=== PATIENT | female | born 1960 | race Caucasian/White ===

== ENCOUNTER 2018-01-10 08:23 | Emergency (ER) | payer SELFPAY ==
[~2018-01-10] VITALS: Ht 160 cm; Wt 60.0 kg
[2018-01-10 09:11] LABS: HEMATOCRIT 45.3 % (37.0-47.0); HEMOGLOBIN 15.6 g/dl (12.0-16.0); IMMATURE GRANULOCYTES 1.1 % (0.0-1.0); MEAN CELL VOLUME 92.1 fL CALC (80.0-100.0); MEAN CORPUSCULAR HGB 31.7 pG CALC (26.0-32.0); MEAN CORPUSCULAR HGB CONC 34.4 g/L CALC (32.0-36.0); NEUT# 2.62 thou/uL (2.00-7.15); RED BLOOD COUNT 4.92 mill/uL (4.20-5.60)
[2018-01-10 09:20] LABS: ALBUMIN 3.6 g/dL (3.2-5.0); ALKALINE PHOSPHATASE 82 u/l (38-126); ANION GAP 11 (6-22 (CALC)); BILIRUBIN, TOTAL 0.5 mg/dL (0.0-1.4); BUN 9 mg/dL (7-17); BUN/CREATININE RATIO 15 (12-20 (CALC)); CARBON DIOXIDE 31 mmol/l (22-30); CHLORIDE 102 mmol/l (95-108); CREATININE 0.6 mg/dL (0.5-1.0); GFR > 60 ML/MIN (>=60 (CALC)); GFR FOR AFR.AMER. > 60 ML/MIN (>=60 (CALC)); POTASSIUM 3.8 mmol/l (3.5-5.1); SGOT/AST 32 u/l (14-36); SGPT/ALT 49 u/l (9-52); SODIUM 140 mmol/l (137-146); TOTAL PROTEIN 6.5 g/dL (6.3-8.2)
[2018-01-10 09:23] LABS: INTERNATIONAL NORMALIZED RATIO 0.9 RATIO (0.7-1.3); PROTHROMBIN TIME 10.3 SECONDS (9.0-12.5)
[2018-01-10] MEDS ORDERED: AMOXICILLIN500 M2 PO (09:31)
[2018-01-10] MEDS ORDERED: TORADOL PO (09:31)
[2018-01-10 09:38] VITALS: BP 152/78
== END 2018-01-10 09:48 | disposition home or self-care (01) | DRG 153 ==
LOC: ED 08:23
PROVIDERS: Emergency Medicine
DX: J02.0 Streptococcal pharyngitis (principal); K62.5 Hemorrhage of anus and rectum